=== PATIENT | female | born 1965 | race Caucasian/White ===

== ENCOUNTER 2024-01-25 10:45 | Outpatient (CLI) | payer BC, SELFPAY ==
[2024-01-25 19:21] LABS: Basophils Percent Auto 0.6 % (0.2-1.2); Eosinophils Absolute Auto 0.3 K/mm3 (0-0.3); Eosinophils Percent Auto 4.3 % (0-4.4); Hematocrit 49.2 % (37.0-47.0); Hemoglobin 15.3 g/dL (12.0-15.0); Immature Granulocyte Absolute 0.01 K/mm3 (0.00-0.031); Immature Granulocyte Percent A 0.2 % (0-0.5); Lymphocytes Absolute Auto 2.01 K/mm3 (0.9-3.2); Lymphocytes Percent Auto 30.5 % (18.3-44.2); Mean Corpuscular HGB Conc 31.1 g/dl (32-36); Mean Corpuscular Hemoglobin 28.8 pg (26-34); Mean Corpuscular Volume 92.5 fl (80-100); Mean Platelet Volume 10.1 fl (7.4-10.4); Monocytes Absolute Auto 0.4 K/mm3 (0.1-0.6); Monocytes Percent Auto 5.8 % (2.6-8.5); Neutrophils Absolute Auto 3.9 K/mm3 (1.3-6.7); Neutrophils Percent Auto 58.6 % (45.5-73.1); Platelet Count Result 310 k/mm3 (150-375); Red Blood Count 5.32 M/mm3 (4.2-5.4); Red Cell Distribution Width 13.1 % (11.5-14.5); White Blood Count 6.6 K/mm3 (4.5-10.0)
[2024-01-25 20:16] LABS: Alanine Aminotransferase 30 U/L (6-35); Albumin Level 4.7 g/dL (3.5-5.1); Alkaline Phosphatase 73 U/L (38-126); Anion Gap 13 mmol/L (4-12); Aspartate Amino Transferase 31 U/L (14-36); Bilirubin,Total 0.5 mg/dL (0.2-1.3); Blood Urea Nitrogen 20 mg/dL (7-17); Calcium 9.2 mg/dL (8.4-10.2); Carbon Dioxide 27 mmol/L (22-30); Chloride 99 mmol/L (98-107); Cholesterol 244 mg/dL (0-200); Estimated Glomerular Filt Rate > 60; Glucose 120 mg/dL (65-110); HDL Direct 53 mg/dL; Potassium 4.6 mmol/L (3.4-5.0); Sodium 139 mmol/L (137-145); Triglycerides 207 mg/dL (<150)
[2024-01-25 20:27] LABS: LDL Cholesterol Direct 124 mg/dL
[2024-01-25 20:54] LABS: Hemoglobin A1C 6.2 % (<5.7)
== END 2024-01-25 10:46 | disposition home or self-care (01) ==
LOC: ANHGOSHLAB 10:46
PROVIDERS: PCP Emergency Medicine; Visit Provider Emergency Medicine
DX: E66.01 Morbid (severe) obesity due to excess calories (principal); L97.929 Non-pressure chronic ulcer of unspecified part of left lower leg with unspecified severity
CPT/HCPCS: 36415; 80053; 80061; 83036; 85025

== ENCOUNTER 2025-04-11 00:21 | Day surgery (SDC) | payer BC, SELFPAY ==
[2025-04-02 14:52] VITALS: BMI 52.9
[2025-04-11 08:36] VITALS: BP 172/71; PULSE 78; RESP 18; TEMP 36.4; O2SAT 94
[2025-04-11] MEDS: LACTATED RINGERS 1,000 ML 150 ML IV CONT (08:46)
--- NOTE | 2025-04-11 09:03 | P.PNAN_ITS ---
Anes - Initial Pre Proc Eval Procedure: Operation Date: 04/11/25 09:30 Proposed Procedures p Diagnostic Colonoscopy - Brandon Mercado MD Date/Time: 04/11/25 09:03 Surgeon: Brandon Mercado MD Pre Op Diagnosis: Other fecal abnormalities Patient Data Age: 59 Gender: F Height: 1.8 m Weight: 175.8 kg Last Vital Signs Temp 97.6 F 04/11/25 08:36 Pulse 78 04/11/25 08:36 Resp 18 04/11/25 08:36 BP 172/71 H 04/11/25 08:36 Pulse Ox 94 04/11/25 08:36 O2 Del Method Room Air 04/11/25 08:36 Allergies Allergy/AdvReac Type Severity Reaction Status Date / Time No Known Allergies Allergy Verified 04/11/25 08:33 Home Medications ?Medication ?Instructions ?Recorded ?Confirmed ?Type meloxicam 15 mg tablet See Rx Instructions .Route 1 07/17/23 04/11/25 Rx .COMPLEX #90 tabs losartan 50 mg tablet See Rx Instructions .Route 1 07/30/23 04/11/25 Rx .COMPLEX #90 tabs triamcinolone acetonide 0.1 % 1 applic topical BID #80 grams 01/24/25 04/11/25 Rx topical cream furosemide 40 mg tablet 40 mg PO QAM #90 tabs 04/11/25 Rx Patient hx anesthesia problems: none Family hx anesthesia problems: none Results Review: All pre-operative results and documents have been reviewed as part of the pre- operative evaluation. [facility] Past Medical History Medical History Osteoarthritis Murmur Morbid obesity Super PVD (peripheral vascular disease) Prediabetes Benign hypertension Family History Family History Mother Hypertension Diabetes mellitus Heart problem Father Colon cancer Heart problem Social History Social History Social History: caffeine- half cafe Smoking status: Former smoker Tobacco type: cigarettes Second hand tobacco smoke exposure: No Alcohol intake: current Alcohol use details: rarely Substance use: never Substance use type: does not use Do You Feel Safe in your Home?: Yes Lack of Transportation: No Lack of Food: Never True Current Housing: I Have Housing Concerned About Future Housing: No Difficulty Paying Gas/Electric Bills: No Difficulty Paying for Meds: No Currently Unemployed: No Living arrangements: with family Spiritual care concerns: No Anes - Eval Final PreProcedure Day of Procedure 04/11/25 09:03 Patient weight: super morbidly obese Heart: regular rate and rhythm Lungs: clear to auscultation Airway: Mallampati scale class III Neurological: alert and oriented Last oral intake: >/= 8 hours ASA classification: IV Emergent: no Anesthetic plan: proceed Anesthesia type and monitoring: general GIVS and standard monitoring Results Review: All pre-operative results and documents have been reviewed as part of the pre- operative evaluation. Informed Consent: The patient's anesthetic plan and its attendant risks and benefits were discussed with the patient/family/POA. Questions were solicited and answers provided to the satisfaction of the patient/family/POA.
--- NOTE | 2025-04-11 09:26 | PM.IMHP ---
H&P: HPI History of Present Illness Date/Time: 04/11/25 09:26 Chief Complaint: Positive Cologuard test Narrative: This is the patient's first colonoscopy. she was recently found to have a Cologuard positive test. There are no GI symptoms and there is no family history of colorectal cancer. Review of Systems Review of Systems: All systems reviewed & are unremarkable except as noted in HPI and below PMFSH Past Medical History Medical History Osteoarthritis Murmur Morbid obesity Super PVD (peripheral vascular disease) Prediabetes Benign hypertension Family History Family History Mother Hypertension Diabetes mellitus Heart problem Father Colon cancer Heart problem Social History Social History Social History: caffeine- half cafe Smoking status: Former smoker Tobacco type: cigarettes Second hand tobacco smoke exposure: No Alcohol intake: current Alcohol use details: rarely Substance use: never Substance use type: does not use Do You Feel Safe in your Home?: Yes Lack of Transportation: No Lack of Food: Never True Current Housing: I Have Housing Concerned About Future Housing: No Difficulty Paying Gas/Electric Bills: No Difficulty Paying for Meds: No Currently Unemployed: No Living arrangements: with family Spiritual care concerns: No Meds Home Medications and Allergies Home Medications ?Medication ?Instructions ?Recorded ?Confirmed ?Type meloxicam 15 mg tablet See Rx Instructions .Route 05/17/24 04/11/25 Rx .COMPLEX #90 tabs losartan 50 mg tablet See Rx Instructions .Route 05/30/24 04/11/25 Rx .COMPLEX #90 tabs triamcinolone acetonide 0.1 % 1 applic topical BID #80 grams 01/24/25 04/11/25 Rx topical cream furosemide 40 mg tablet 40 mg PO QAM #90 tabs 02/20/25 04/11/25 Rx Allergies Allergy/AdvReac Type Severity Reaction Status Date / Time No Known Allergies Allergy Verified 04/11/25 08:33 Vital Signs Vital Signs - 24 hr 04/11/25 08:36 Temperature 97.6 F Pulse Rate 78 Respiratory Rate 18 Blood Pressure 172/71 H Pulse Oximetry 94 Oxygen Delivery Room Air Exam Const: General: cooperative and healthy appearing Resp: Effort & Inspection: normal respiratory effort and able to speak in complete sentences Auscultation: clear to auscultation bilaterally Cardio: Rate: regular rate Rhythm: regular rhythm GI: Inspection: normal to inspection GI Palp: No No hepatosplenomegaly present Auscultation: normal bowel sounds Rectal Exam: deferred Skin: General skin exam: normal color Psych: Appearance: grossly normal Mental Status: mental status grossly normal Assessment and Plan Assessment and plan (1) Positive colorectal cancer screening using Cologuard test: Code(s): R19.5 - Other fecal abnormalities Status: Acute Assessment and Plan: The patient is deemed a good candidate for the procedure. Consent signed. Will proceed.
--- NOTE | 2025-04-11 10:01 | S_PTH ---
PATIENT: Elsa Zhang LOC: ZEN #:[id number] AGE/SX: 59/F ROOM: RE04/11/[address]: Brandon Mercado MD : 1965 BED: DIS: 04/11/2025 SPEC #: [id number] RECD: 04/11/25 11:46 STATUS: JUDSON REQ #: [id number] ANDREW: 04/11/25 10:[address]: Brandon Mercado DEPT: [facility] Surgical RECD BY: Denise Hurst ENTERED: 04/11/25 11:46 SP TYPE: Surgical OTHR DR: Jose Hernandez MD Tissues: A - Colon Polypectomy B - Rectal Polyp Procedures: Hematoxylin and Eosin Stain Gross and Microscopic Level 4
[2025-04-11 10:05] VITALS: BP 128/77; PULSE 74; RESP 16; O2SAT 96
[2025-04-11 10:15] VITALS: BP 131/75; PULSE 68; RESP 18; O2SAT 96
[2025-04-11 10:25] VITALS: BP 130/82; PULSE 65; RESP 18; O2SAT 96
== END 2025-04-11 10:32 | disposition home or self-care (01) ==
PROVIDERS: PCP Family Medicine; Referring Provider Family Medicine; Visit Provider Internal Medicine Gastroenterology
PROC: 0DJD8ZZ Inspection of Lower Intestinal Tract, Via Natural or Artificial Opening Endoscopic (ICD-10-PCS; CPT 45378; principal; 2025-04-11 09:30)
DX: R19.5 Other fecal abnormalities (principal); D12.0 Benign neoplasm of cecum; K62.1 Rectal polyp; K57.30 Diverticulosis of large intestine without perforation or abscess without bleeding; I10 Essential (primary) hypertension; R73.03 Prediabetes; I73.9 Peripheral vascular disease, unspecified; R01.1 Cardiac murmur, unspecified; M19.90 Unspecified osteoarthritis, unspecified site; E66.01 Morbid (severe) obesity due to excess calories; Z68.43 Body mass index [BMI] 50.0-59.9, adult; Z87.891 Personal history of nicotine dependence; Z80.0 Family history of malignant neoplasm of digestive organs; Z82.49 Family history of ischemic heart disease and other diseases of the circulatory system
CPT/HCPCS: 45385; 88305; J2003; J2704; J7120